=== PATIENT | female | born 1980 | race African-American/Black ===

== ENCOUNTER 2017-08-03 17:50 | Emergency (ER) | payer MEDICAID ==
[~2017-08-03] VITALS: Ht 167.6 cm; Wt 68.0 kg
[2017-08-03] MEDS ORDERED: MORPHINE SULFATE 4 MG/ML CPJ (NOT FOR IM USE) IV STA (19:30)
[2017-08-03] MEDS ORDERED: SODIUM CHLORIDE 0.9% 1,000 ML IV ONE (19:30)
[2017-08-03] MEDS ORDERED: ONDANSETRON HCL 4MG/2ML VIAL IV STA (19:30)
[2017-08-03 19:51] LABS: BASOPHILS % 0.4 % (0.0-2.0); EOSINOPHILS % 2.7 % (0.0-5.0); HEMATOCRIT. 36.9 % (36.0-48.0); HEMOGLOBIN. 12.1 g/dL (12.0-16.0); LYMPHOCYTES % 27.9 % (20.0-50.0); MEAN CORPUSCULAR VOLUME 82.3 fL (81.0-99.0); MONOCYTES % 5.2 % (2.0-8.0); NEUTROPHILS % 63.8 % (40.0-76.0); PLATELET 282 x1000/uL (130-400); RED BLOOD CELL COUNT 4.49 mill/uL (4.2-5.4); RED CELL DISTRIBUTION WIDTH 15.1 % (11.6-14.6)
[2017-08-03 19:56] LABS: CARBON DIOXIDE 25 mEq/L (21-32); CHLORIDE 105 mEq/L (98-107)
[2017-08-03 19:57] LABS: PROTHROMBIN TIME 10.2 sec (9.4-11.6)
[2017-08-03 20:03] LABS: PHENOBARBITAL 20.5 ug/mL (15.0-40.0)
[2017-08-03 20:04] LABS: TROPONIN I < 0.02 ng/mL (0.00-0.04)
[2017-08-03 20:13] LABS: HCG SCREEN POSITIVE
[2017-08-03 20:41] LABS: CLARITY URINE CLEAR (CLEAR); COLOR URINE YELLOW (YELLOW); GLUCOSE URINE NEGATIVE (NEGATIVE); KETONES URINE NEGATIVE (NEGATIVE); LEUKOCYTE ESTERASE URINE TRACE (NEGATIVE); NITRITE URINE NEGATIVE (NEGATIVE); OCCULT BLOOD URINE NEGATIVE (NEGATIVE); PH URINE 6.5 (4.5-8.0); PROTEIN URINE NEGATIVE (NEGATIVE); SPECIFIC GRAVITY URINE 1.013 (1.005-1.030); UROBILINOGEN URINE 0.2 E.U./dL (0.2-1.0)
[2017-08-03 21:21] LABS: B-HCG QUANTITATIVE 50 mIU/mL (<3); TROPONIN I < 0.02 ng/mL (0.00-0.04)
[2017-08-04 00:30] VITALS: BP 128/77
== END 2017-08-04 01:17 | disposition home or self-care (01) ==
LOC: EDBD 17:50 → ER 19:02 → CANBEDREQ 08-04 01:19
DX: R10.13 Epigastric pain (principal); R11.10 Vomiting, unspecified
CPT/HCPCS: 36415; 71010; 76801; 76817; 80053; 80184; 81001; 83690; 84484; 84702; 84703; 85025; 85610; 86850; 86900; 86901; 96361; 96374; 96375; 99285; J2270; J2405; J7030

== ENCOUNTER 2018-01-15 08:34 | Emergency (ER) | payer MEDICAID ==
[~2018-01-15] VITALS: Ht 149.9 cm; Wt 61.0 kg
[2018-01-15] MEDS ORDERED: ASPIRIN 81MG TABLET PO STA (08:42)
[2018-01-15] MEDS ORDERED: LORAZEPAM 1MG TABLET PO ONE (09:15)
[2018-01-15 09:32] LABS: BASOPHILS % 0.6 % (0.0-2.0); EOSINOPHILS % 3.5 % (0.0-5.0); HEMOGLOBIN. 12.7 g/dL (12.0-16.0); LYMPHOCYTES % 39.1 % (20.0-50.0); MEAN CORPUSCULAR HEMOGLOBIN 27.9 pg (28.0-32.0); MEAN CORPUSCULAR VOLUME 83.5 fL (81.0-99.0); MEAN PLATELET VOLUME 8.8 fl (7.4-10.4); MONOCYTES % 7.6 % (2.0-8.0); NEUTROPHILS % 49.2 % (40.0-76.0); PLATELET 302 x1000/uL (130-400); RED BLOOD CELL COUNT 4.55 mill/uL (4.2-5.4); RED CELL DISTRIBUTION WIDTH 14.4 % (11.6-14.6)
[2018-01-15 09:38] LABS: D-DIMER 0.2 mg/L FEU (<0.50); INR 1.1; PARTIAL THROMBOPLASTIN TIME 27.3 sec (23.4-31.0); PROTHROMBIN TIME 11.2 sec (9.4-11.6)
[2018-01-15 09:43] LABS: CHLORIDE 105 mEq/L (98-107)
[2018-01-15 09:47] LABS: ETHANOL BLOOD < 10 mg/dL
[2018-01-15 09:54] LABS: HCG SCREEN NEGATIVE
[2018-01-15 09:57] LABS: *BARBITURATES SCREEN URINE NEGATIVE (NEGATIVE); *COCAINE SCREEN URINE NEGATIVE (NEGATIVE); METHADONE URINE SCREEN NEGATIVE (NEGATIVE); PHENCYCLIDINE URINE SCREEN NEGATIVE (NEGATIVE)
[2018-01-15 10:08] LABS: *AMPHETAMINES SCREEN URINE PRESUMTIVE POSITIVE (NEGATIVE); *BENZODIAZEPINES SCREEN URINE PRESUMTIVE POSITIVE (NEGATIVE); OPIATES URINE SCREEN PRESUMTIVE POSITIVE (NEGATIVE)
[2018-01-15 10:09] LABS: CANNABINOID URINE SCREEN PRESUMTIVE POSITIVE (NEGATIVE)
[2018-01-15 11:22] VITALS: BP 122/81
== END 2018-01-15 11:30 | disposition home or self-care (01) ==
LOC: ER 08:56 → CANBEDREQ 13:00
DX: R07.89 Other chest pain (principal); F15.10 Other stimulant abuse, uncomplicated; F11.19 Opioid abuse with unspecified opioid-induced disorder; F12.90 Cannabis use, unspecified, uncomplicated; R03.0 Elevated blood-pressure reading, without diagnosis of hypertension; F41.9 Anxiety disorder, unspecified; F91.8 Other conduct disorders; G40.909 Epilepsy, unspecified, not intractable, without status epilepticus; Z85.41 Personal history of malignant neoplasm of cervix uteri; Z79.82 Long term (current) use of aspirin
CPT/HCPCS: 36415; 71045; 80053; 80305; 80307; 80329; 83690; 83735; 83880; 84443; 84484; 84703; 85025; 85379; 85610; 85730; 93005; 99285; G0482; Z7610

== ENCOUNTER 2020-04-12 23:25 | Emergency (ER) | payer MEDICAID ==
[~2020-04-12] VITALS: Ht 149.9 cm; Wt 70.0 kg
[2020-04-13] MEDS ORDERED: DEXAMETHASONE 4MG TABLET PO ONE (04:45)
[2020-04-13] MEDS ORDERED: IPRATROPIUM/ALBUTEROL 0.5-3(2.5)MG/3ML NEB HHN ONE (04:45)
[2020-04-13] MEDS ORDERED: ONDANSETRON 4MG ODT PO ONE (05:15)
[2020-04-13 06:18] VITALS: BP 128/75
== END 2020-04-13 06:17 | disposition home or self-care (01) ==
LOC: ER 23:25
DX: J40 Bronchitis, not specified as acute or chronic (principal); R00.0 Tachycardia, unspecified; Z88.8 Allergy status to other drugs, medicaments and biological substances; Z98.890 Other specified postprocedural states
CPT/HCPCS: 71045; 81025; 93005; 94640; 99283; J8540; Q0162; Z7610